=== PATIENT | female | born 1990 ===

== ENCOUNTER 2024-02-19 02:35 | Outpatient (CLI) | payer OTHER, SELFPAY ==
--- NOTE | 2024-02-19 07:45 | DI.RAD_ITS ---
Exam(s) RF ARTHROGRAM RAD W CT OR MRI EXAM: RF ARTHROGRAM RAD W CT OR MRI CLINICAL HISTORY: ? LABRAL TEAR,FOR ARTHROGRAM,s43.438a. TECHNIQUE: 2D and realtime digital imaging was performed. CONTRAST MATERIAL: INTRA-ARTICULAR CONTRAST-SEE BELOW COMPARISON: CR XR SHOULDER MIN 2V LT from 12/21/2023 FINDINGS: This pre MRI arthrogram was performed at the request of the referring orthopedic surgeon. Patient was consented prior to this procedure Patient was placed in the supine position on the fluoroscopy table. Using sterile technique and adequate skin-subcutaneous anesthesia, fluoroscopic guidance was used to advance a 22 gauge spinal needle into the glenohumeral joint using an anterior approach. A total of 12 cc of sterile solution of iodinated contrast (Omnipaque 300), preservative-free saline, and Dotarem was introduced into the joint space. Needle was removed. Patient was sent to the MRI suite Patient tolerated this procedure well and there were no intraprocedural complications. IMPRESSION: Pre MRI arthrogram as above. There there is no evidence of full-thickness rotator cuff tear evident during this procedure. See separate MRI report RADIATION DOSE DELIVERED: beau Jacobo=2.42mGy
--- NOTE | 2024-02-19 07:45 | DI.MRI_ITS ---
Exam(s) MR UPPER JOINT LT W EXAM: MR UPPER JOINT LT W CLINICAL HISTORY: L SHOULDER INJURY,labral tear,s43.439a TECHNIQUE: Multiplanar multisequence MRI of the shoulder was performed following fluoroscopic guided pre MRI arthrogram (12 cc). COMPARISON: CR XR SHOULDER MIN 2V LT from 12/21/2023 RF RF ARTHROGRAM RAD W CT OR MRI from 02/19/2024 FINDINGS: MARROW:There is no evidence of fracture, Hill-Sachs deformity, nor ominous osseous lesions. There is a small 2 millimeter degenerative subarticular cysts in the posterolateral aspect the humeral head. GLENOHUMERAL JOINT: No obvious chondral defects. There is mild synovial thickening. No distinct loo se intra-articular bodies evident. GLENOHUMERAL LIGAMENTS: There is significant signal abnormality of the appearance of the inferior gle nohumeral ligament consistent with partial tearing of this structure. Also irregularity evident consi stent with partial tearing of the middle glenohumeral ligament. Some regularity of the superior gleno humeral ligament is also noted. ROTATOR CUFF MECHANISM: AC JOINT/ACROMIUM: AC joint appears unremarkable.. There is no evidence of os acromiale. Supraspinatus: Intact. No evidence of tear nor muscle atrophy. Infraspinatus: Intact. No evidence of tear nor muscle atrophy. Teres Minor: Intact. No evidence of tear nor muscle atrophy. Subscapularis/anterior cuff: Intact. No abnormal signal at the level of the multipennate insertional fibers. No significant tear nor atrophy. BICEPS TENDON: Exhibits normal position within the intertubercular groove. No evidence of tear. LABRUM: No labral tear identified. No evidence of paralabral cyst. IMPRESSION: 1. No evidence of labral tears. No evidence of biceps tendon tear nor displacement. 2. No evidence of rotator cuff tears 3. Main findings here are related to the glenohumeral ligaments with findings consistent with partial tearing of the inferior and middle glenohumeral ligaments. DATA REPOSITORY:
[2024-02-19] MEDS: Normal Saline - Diluent 50 ML VIAL IJ (15:14)
[2024-02-19] MEDS: Gadoterate meglumine 20 ML VIAL IVP (15:14)
[2024-02-19] MEDS: Lidocaine 1% Pres-Free 30 ML VIAL IJ (15:15)
[2024-02-19] MEDS: Omnipaque 300 MG/ML 10 ML BTL IJ (15:16)
--- NOTE | 2024-02-19 17:01 | DI.VRAD_ITS ---
Addendum created by Tiana Arciniega MD on 02/19/2024 6:18:15 PM EST: Addendum: Heterogeneous appearance of the inferior glenohumeral ligament at the humeral attachment could be due to partial tearing or sequelae of injection. Correlate with clinical scenario. The upper portion of the middle glenohumeral ligament and the superior glenohumeral ligament are irregular which could be related to contrast injection or partial tearing. Correlate with clinical scenario. Initial report created on 02/19/2024 5:00:58 PM EST: PROCEDURE INFORMATION: Exam: MR Left Upper Extremity Joint With Contrast; Shoulder Exam date and time: 02/19/2024 3:29 PM Age: 33 years old Clinical indication: Injury or trauma; Other: Shoulder injury; Other: Tear TECHNIQUE: Imaging protocol: Magnetic resonance imaging of the left upper extremity with contrast. Exam focused on the shoulder. Contrast material: DOTAREM; Contrast volume: 0.2 ml; Contrast route: INTRA-ARTICULAR (ARTHROGRAM); COMPARISON: CR XR SHOULDER MIN 2V LT 12/21/2023 8:27 PM FINDINGS: Bones/joints: Intra-articular contrast is present the glenohumeral joint. Mild synovitis. Glenoid labrum: Unremarkable. No evidence of tear. Supraspinatus tendon: Unremarkable. No evidence of tear. Infraspinatus tendon: Unremarkable. No evidence of tear. Subscapularis tendon: Unremarkable. No evidence of tear. Teres minor tendon: Unremarkable. No evidence of tear. Tendon of biceps brachii: Unremarkable. No evidence of tear. Glenohumeral ligaments: Unremarkable. Soft tissues: Unremarkable. IMPRESSION: Mild glenohumeral synovitis. MRI of the left shoulder with intra-articular gadolinium is otherwise normal. Dictated and Authenticated by: Tiana Arciniega MD. Ordering:JAYLEN Leroy MD
== END 2024-02-19 02:55 ==
PROVIDERS: Visit Provider Student in an Organized Health Care Education/Training Program
DX: S43.432A Superior glenoid labrum lesion of left shoulder, initial encounter (principal); X58.XXXA Exposure to other specified factors, initial encounter
CPT/HCPCS: 23350; 73040; 73222